=== PATIENT | male | born 1960 | race Caucasian/White ===

== ENCOUNTER 2019-03-30 21:40 | Emergency (ER) | payer SELFPAY ==
[~2019-03-30] VITALS: Ht 182.9 cm; Wt 95.0 kg
[~2019-03-30 21:40] MED LIST: AMIT10TA6 PO; AMLO10TA80 PO; CITA10TA16 PO; DIGO250T81 PO; HYDR-3933 PO; METO100T16 PO; PANT40TA4 PO
[2019-03-30 22:10] VITALS: BP 142/80
== END 2019-03-31 00:27 | disposition left against medical advice (07) ==
LOC: ER 21:40
DX: Z53.21 Procedure and treatment not carried out due to patient leaving prior to being seen by health care provider (principal)
CPT/HCPCS: 93005

== ENCOUNTER 2019-03-31 22:38 | Emergency (ER) | payer BC ==
[~2019-03-31] VITALS: Ht 182.9 cm; Wt 91.0 kg
[2019-03-31] MEDS ORDERED: ASPIRIN 81MG TABLET PO ONE (23:45)
[2019-04-01 00:16] LABS: BASOPHILS % 0.7 % (0.0-2.0); EOSINOPHILS % 1.1 % (0.0-5.0); HEMOGLOBIN. 16.8 g/dL (14.0-18.0); LYMPHOCYTES % 27.9 % (20.0-50.0); MEAN CORPUSCULAR HEMOGLOBIN 30.2 pg (28.0-32.0); MEAN CORPUSCULAR VOLUME 88.3 fL (80.0-94.0); MEAN PLATELET VOLUME 8.4 fl (7.4-10.4); MONOCYTES % 7.8 % (2.0-8.0); NEUTROPHILS % 62.5 % (40.0-76.0); PLATELET 196 x1000/uL (130-400); RED BLOOD CELL COUNT 5.55 mill/uL (4.7-6.1)
[2019-04-01 00:17] LABS: CHLORIDE 107 mEq/L (98-107)
[2019-04-01 03:36] VITALS: BP 118/67
== END 2019-04-01 03:38 | disposition home or self-care (01) ==
LOC: ER 22:38
DX: R07.89 Other chest pain (principal); R53.1 Weakness; I48.91 Unspecified atrial fibrillation; Z79.899 Other long term (current) drug therapy; Z88.1 Allergy status to other antibiotic agents
CPT/HCPCS: 36415; 71045; 80053; 83880; 84484; 85025; 93005; 99284; Z7610